=== PATIENT | male | born 1995 | race Caucasian/White ===

== ENCOUNTER 2017-08-24 17:06 | Emergency (ER) | payer MEDICAID ==
[~2017-08-24] VITALS: Ht 170.2 cm; Wt 77.3 kg
[2017-08-24] MEDS ORDERED: IBUPROFEN 800 MG TABLET PO ONE (18:45)
[2017-08-24] MEDS ORDERED: PERTUSS(ACELL),DIPH,TET VAC/PF 0.5 ML VIAL IM ONE (18:45)
[2017-08-24 19:13] VITALS: BP 139/76
== END 2017-08-24 19:19 | disposition home or self-care (01) ==
LOC: EMS 17:07
DX: S61.011A Laceration without foreign body of right thumb without damage to nail, initial encounter (principal); J45.909 Unspecified asthma, uncomplicated; F17.210 Nicotine dependence, cigarettes, uncomplicated; W26.0XXA Contact with knife, initial encounter; Y93.89 Activity, other specified; Y92.89 Other specified places as the place of occurrence of the external cause; Y99.8 Other external cause status
CPT/HCPCS: 90471; 90715; 99283

== ENCOUNTER 2017-08-26 02:14 | Emergency (ER) | payer MEDICAID ==
[~2017-08-26] VITALS: Ht 170.2 cm; Wt 77.0 kg
[2017-08-26] MEDS ORDERED: KETOROLAC TROMETHAMINE 60 MG/2 ML VIAL IM ONE (03:45)
[2017-08-26 04:33] VITALS: BP 133/82
== END 2017-08-26 04:35 | disposition home or self-care (01) ==
LOC: EMS 02:15
DX: S00.83XA Contusion of other part of head, initial encounter (principal); J45.909 Unspecified asthma, uncomplicated; F17.210 Nicotine dependence, cigarettes, uncomplicated; W22.8XXA Striking against or struck by other objects, initial encounter; Y93.89 Activity, other specified; Y92.89 Other specified places as the place of occurrence of the external cause; Y99.8 Other external cause status
CPT/HCPCS: 96372; 99283; 99406; J1885

== ENCOUNTER 2017-11-11 21:51 | Emergency (ER) | payer MEDICAID ==
[~2017-11-11] VITALS: Ht 170.2 cm; Wt 72.7 kg
[2017-11-11 22:40] VITALS: BP 127/70
[2017-11-11] MEDS ORDERED: IBUPROFEN 600 MG TABLET PO ONE (22:45)
== END 2017-11-11 22:54 | disposition home or self-care (01) ==
LOC: EMS 21:53
DX: J03.90 Acute tonsillitis, unspecified (principal); J45.909 Unspecified asthma, uncomplicated; F17.210 Nicotine dependence, cigarettes, uncomplicated
CPT/HCPCS: 99283; 99406

== ENCOUNTER 2018-02-09 12:48 | Emergency (ER) | payer MEDICAID ==
[~2018-02-09] VITALS: Ht 170.2 cm; Wt 77.3 kg
[2018-02-09 12:51] VITALS: BP 129/66
== END 2018-02-09 14:40 | disposition left against medical advice (07) ==
LOC: EMS 12:48
DX: M25.571 Pain in right ankle and joints of right foot (principal); M25.471 Effusion, right ankle; J45.909 Unspecified asthma, uncomplicated; F17.210 Nicotine dependence, cigarettes, uncomplicated; Z53.21 Procedure and treatment not carried out due to patient leaving prior to being seen by health care provider